=== PATIENT | female | born 1950 | race American Indian/Alaskan Native ===

== ENCOUNTER 2017-07-24 15:29 | Emergency (ER) | payer MEDICARE, OTHER ==
[2017-07-24 16:04] VITALS: BP 144/84
--- NOTE | 2017-07-24 17:52 | Emergency Department Report ---
ED Upper Extremity Inj HPI - General Chief Complaint: Extremity Injury, Upper Stated Complaint: RIGHT SIDE SHOULDER PAIN Time Seen by Provider: 07/24/17 17:43 Source: patient, RN notes reviewed Mode of arrival: Ambulatory Limitations: No Limitations - History of Present Illness MD Complaint: Injury to:: right -: Gradual, month(s) Other Extremity Injury: Shoulder: Right Other Injuries: none Handedness: right Place: home Improves With: other (ultram; she is out) Worsens With: movement of extremity Context: other (old injury w acute pain w cold) Associated Symptoms: denies other symptoms. denies: weakness, numbness, neck pain, suspects foreign body, nausea/vomiting, heard/felt popping sensat Treatments Prior to Arrival: NSAIDS, other (went to her md today but they where closed) - Related Data Home Medications Medication Instructions Recorded Confirmed Last Taken amLODIPine [Norvasc] 5 mg PO DAILY 06/22/15 06/22/15 Unknown Previous Rx's Medication Instructions Recorded Last Taken Type predniSONE [Deltasone] 20 mg PO DAILY #5 tablet 07/24/17 Unknown Rx traMADol [Ultram] 50 mg PO Q8H PRN #12 tablet 07/24/17 Unknown Rx Allergies Allergy/AdvReac Type Severity Reaction Status Date / Time No Known Allergies Allergy Verified 03/18/14 21:52 ED Review of Systems ROS: Stated complaint: RIGHT SIDE SHOULDER PAIN Other details as noted in HPI Comment: All other systems reviewed and negative Musculoskeletal: other (r shoulder pain a/c) ED Past Medical Hx - Past Medical History Hx Hypertension: Yes Additional medical history: arthtritis. htn - Surgical History Additional Surgical History: bunion, gastric bypass, tummy tuck, hysterectomy - Social History Smoking Status: Current Every Day Smoker Substance Use Type: Alcohol - Medications Home Medications: Home Medications Medication Instructions Recorded Confirmed Last Taken Type amLODIPine [Norvasc] 5 mg PO DAILY 06/22/15 06/22/15 Unknown History predniSONE [Deltasone] 20 mg PO DAILY #5 tablet 07/24/17 Unknown Rx traMADol [Ultram] 50 mg PO Q8H PRN #12 tablet 07/24/17 Unknown Rx ED Physical Exam - General Limitations: No Limitations General appearance: alert - Head Head exam: Present: atraumatic - Eye Eye exam: Present: PERRL, EOMI - ENT ENT exam: Present: mucous membranes moist - Neck Neck exam: Present: normal inspection - Respiratory Respiratory exam: Present: normal lung sounds bilaterally - Cardiovascular Cardiovascular Exam: Present: regular rate - GI/Abdominal GI/Abdominal exam: Present: soft - Rectal Rectal exam: Present: deferred - Expanded Upper Extremity Exam Right Shoulder Exam: Present: full ROM (with pain; old injury; a/c arthritis), other ( no new fall; just hanging xmas stuff at home when it started to flare and cold making worse). Absent: tenderness, swelling, abrasion, laceration, ecchymosis, deformity, crepidus, dislocation, erythema, tenderness over AC joint Elbow exam: Present: normal inspection - Back Exam Back exam: Present: normal inspection, full ROM. Absent: tenderness, CVA tenderness (R) - Neurological Exam Neurological exam: Present: alert, oriented X3, CN II-XII intact, normal gait, reflexes normal - Psychiatric Psychiatric exam: Present: normal affect, normal mood - Skin Skin exam: Present: warm, dry, normal color. Absent: rash ED Course Vital Signs 07/24/17 15:57 Temperature 98.1 F Pulse Rate 82 Respiratory 20 Rate Blood Pressure 144/84 O2 Sat by Pulse 100 Oximetry - Reevaluation(s) Reevaluation #1: 07/24/17 18:13 no trauma n/v intact good pulses rapid cap refill no neuro def ED Medical Decision Making - Radiology Data Radiology results: report reviewed, image reviewed - Medical Decision Making see note - Differential Diagnosis ro fx Critical care attestation.: If time is entered above; I have spent that time in minutes in the direct care of this critically ill patient, excluding procedure time. ED Disposition Clinical Impression: Arthritis, Shoulder pain Disposition: DC-01 TO HOME OR SELFCARE Is pt being admited?: No Does the pt Need Aspirin: No Condition: Stable Instructions: Osteoarthritis (ED) Additional Instructions: rest warm compresses motrin over the counter for mild pain ultram for severe pain prednisone to treat the arthritis follow up with pcp and /or ortho MD Referrals: JEYSON MACE MD [Staff Physician] - 3-5 Days NILAM BRUNER MD [Staff Physician] - 3-5 Days Time of Disposition: 18:10
--- NOTE | 2017-07-24 17:56 | XRay Report ---
FINAL REPORT EXAM: XR SHOULDER 2+V RT HISTORY: RT SHOULDER PAIN TECHNIQUE: Three views right shoulder PRIORS: None. FINDINGS: No fractures are identified. No dislocation seen. The acromioclavicular joint is intact. Adjacent bony and soft tissue structures are unremarkable. IMPRESSION: Negative shoulder series
[2017-07-24] MEDS ORDERED: DELTASONE PO ONE (18:08)
== END 2017-07-24 18:30 | disposition home or self-care (01) ==
LOC: ED 15:29
DX: M19.011 Primary osteoarthritis, right shoulder (principal); I10 Essential (primary) hypertension; F17.200 Nicotine dependence, unspecified, uncomplicated
CPT/HCPCS: 73030; 99283; J7512